=== PATIENT | female | born 1970 | race Caucasian/White ===

== ENCOUNTER → 2017-12-01 | Outpatient (CLI) | payer OTHER ==
[~2017-12-01] MED LIST: IBUPROFEN 600600 M1 PO
== END ==
LOC: M.ULTRA 11-27 13:00 → M.RAD 11-27 13:00 → M.ULTRA 11-27 14:00 → M.RAD 13:10 → M.ULTRA 13:30
DX: Z12.31 Encounter for screening mammogram for malignant neoplasm of breast (principal); R92.8 Other abnormal and inconclusive findings on diagnostic imaging of breast; N63.10 Unspecified lump in the right breast, unspecified quadrant; N63.20 Unspecified lump in the left breast, unspecified quadrant

== ENCOUNTER → 2019-02-28 | Outpatient (CLI) | payer OTHER | LOC: M.RAD 12-21 14:53 | DX: N63.10 Unspecified lump in the right breast, unspecified quadrant (principal); N63.20 Unspecified lump in the left breast, unspecified quadrant; R92.2 Inconclusive mammogram ==